=== PATIENT | male | born 1935 | race Caucasian/White ===

== ENCOUNTER 2018-09-01 13:39 | Outpatient (CLI) | payer MEDICARE, OTHER ==
[~2018-09-01 13:39] MED LIST: AMLO2.5T2 PO; ASPI-611 PO; FLO0.4C PO; HYDR-3965 PO; HYDR25TA4 PO; LORA10TA7 PO; LOSA50TA3 PO; METO50TA17 PO; MULT1TAB74 PO; NAPR220C15 PO; NITR0.4T48 SL
== END 2018-09-01 23:59 | disposition home or self-care (01) ==
LOC: CARD DIAG 13:39
PROVIDERS: ATTEND Internal Medicine Cardiovascular Disease
DX: I08.1 Rheumatic disorders of both mitral and tricuspid valves (principal); I11.0 Hypertensive heart disease with heart failure; I50.9 Heart failure, unspecified; I48.91 Unspecified atrial fibrillation
CPT/HCPCS: 93306